=== PATIENT | female | born 1985 | race African-American/Black ===

== ENCOUNTER 2018-03-25 18:43 | Emergency (ER) | payer MEDICAID ==
[~2018-03-25] VITALS: Ht 165.1 cm; Wt 82.0 kg
[2018-03-25] MEDS ORDERED: KETOROLAC 60MG/2ML VIAL IM ONE (23:00)
[2018-03-26 01:40] VITALS: BP 100/69
== END 2018-03-26 01:40 | disposition home or self-care (01) ==
LOC: ER 19:44
DX: M54.2 Cervicalgia (principal); M54.6 Pain in thoracic spine; M54.5 Low back pain; R01.1 Cardiac murmur, unspecified; F12.10 Cannabis abuse, uncomplicated; V59.09XA Driver of pick-up truck or van injured in collision with other motor vehicles in nontraffic accident, initial encounter; Y93.89 Activity, other specified; Y92.89 Other specified places as the place of occurrence of the external cause; Y99.8 Other external cause status; Z88.0 Allergy status to penicillin
CPT/HCPCS: 72070; 72100; 72125; 81025; 96372; 99284; J1885